=== PATIENT | male | born 1985 | race Caucasian/White ===

== ENCOUNTER → 2022-04-22 07:14 | Outpatient (CLI) | payer OTHER, SELFPAY ==
--- NOTE | 2022-04-22 | DI.MRI.S_ITS ---
PROCEDURE: MR KNEE LT WO CON INDICATIONS: Unspecified superficial injury of left knee, initial encount TECHNIQUE: Noncontrast sagittal PD fast spin echo and T2 fast spin echo with fat saturation, sagittal 3-D FLASH with fat saturation; coronal T1 spin echo and PD fast spin echo with fat saturation, and axial PD fast spin echo with fat saturation through the knee. COMPARISON: None. FINDINGS: Image quality: Excellent. Menisci: There is mild T2 signal elevation at the posterior meniscal capsular junction of the posterior horn medial meniscus. Linear oblique high T2 signal intensity traverses the peripheral 3rd of the posterior horn medial meniscus, demonstrating inferior articular surface extension, indicating oblique tearing. Lateral meniscus is intact. Cruciate ligaments: The anterior and posterior cruciate ligaments appear intact. Medial structures: The medial collateral ligament appears intact. Visualized portions of the pes anserinus tendons appear normal. No abnormal bursal fluid. Lateral structures: The lateral collateral ligament, long and short heads of the biceps femoris tendon appear intact. The popliteus tendon appears normal. Iliotibial band appears normal. Anterior structures: The quadriceps and patellar tendons appear intact. Patellar alignment is normal. No femoral trochlear dysplasia or ventral trochlear prominence. No edema in the infrapatellar fat pad. Bones and cartilage: No bone marrow contusions nor acute fracture. There is chronic appearing contour regularity of the patella. There is mild ill-defined T2 signal elevation within the anterior weight-bearing aspect of the lateral femoral condyle and within the lateral aspect of the lateral femoral trochlea. Mild ill-defined T2 signal elevation within the patellar apex and adjacent portion of the lateral patellar facet. There mild articular cartilage loss diffusely overlying the weight-bearing aspects of the medial femoral condyle and medial tibial plateau. There is a focal full-thickness articular cartilage defect overlying the patellar apex and adjacent portion of the lateral patellar facet spanning roughly 20 mm transverse. Full-thickness articular cartilage loss overlies the mid and anterior weight-bearing aspects of the lateral femoral condyle. Joint space: There is a moderate knee joint effusion. No Snow's cyst. Normal appearing synovial plicae are incidentally noted. IMPRESSION: 1. Meniscal capsular junction injury and oblique tearing involving the medial meniscus. 2. Full-thickness articular cartilage defect overlying the patella, possibly secondary to remote trauma. 3. Moderate knee joint effusion. 4. Contusion versus degenerative marrow edema within the lateral femoral condyle. 5. Lateral compartment articular cartilage loss. Dictated by: Andrey Cooper M.D. on 04/22/2022 at 11:48 Transcribed by: [email or web address] on 04/22/2022 at 11:52 Approved by: Andrey Cooper M.D. on 04/22/2022 at 14:42
== END ==
PROVIDERS: PCP Internal Medicine; Referring Provider Internal Medicine; Visit Provider Internal Medicine
DX: S83.242A Other tear of medial meniscus, current injury, left knee, initial encounter (principal); M25.462 Effusion, left knee
CPT/HCPCS: 73721

== ENCOUNTER 2023-05-30 15:17 | Emergency (ER) | payer OTHER, SELFPAY ==
[2023-05-30 16:00] VITALS: BP 152/91; PULSE 98; RESP 15; TEMP 37.4; O2SAT 98; BMI 31.6
--- NOTE | 2023-05-30 16:03 | DI.RAD.S_ITS ---
PROCEDURE: XR CHEST 2V INDICATIONS: cough x 7 days, fever TECHNIQUE: 2 views of the chest were acquired. COMPARISON: None. FINDINGS: Surgical changes and devices: None. Lungs and pleura: Lungs are clear. No pleural effusions or pneumothorax. Mediastinum: Mediastinal contours are normal. Heart size is normal. Bones and chest wall: No suspicious bony abnormalities. Soft tissues appear unremarkable. IMPRESSION: No acute cardiopulmonary abnormality is seen. Dictated by: Ronit Brewer M.D. on 05/30/2023 at 16:23 Approved by: Ronit Brewer M.D. on 05/30/2023 at 16:23
[2023-05-30 16:35] LABS: COVID19 -Nasal RAPID Negative (Negative)
[2023-05-30 17:55] VITALS: BP 136/81; PULSE 88; RESP 18; O2SAT 97
--- NOTE | 2023-05-31 14:11 | ED_ITS ---
HPI - URI/Sore Throat <Brynn Freedman PA-C - Last Filed: 05/31/23 14:13> General Chief Complaint: Upper Respiratory Symptoms Stated Complaint: cough t-7 worsening Time Seen by Provider: 05/30/23 18:19 Source: patient Mode of arrival: Ambulatory History of Present Illness HPI Narrative: Patient is a 37-year-old male with no significant past medical history who presents with cough. He has been traveling to [place] for work over the past several weeks and developed a cough. He initially attributed this to the dry air or elevation. He never developed a fever or chills, runny nose sore throat or other symptoms. He feels that the cough is improving over the last 2 days. He does endorse that zmew-gnw-[id number] cough medicine helps. The cough is worse at night. He is a nonsmoker. Related Data Allergies Allergy/AdvReac Type Severity Reaction Status Date / Time cefaclor [From Ceclor] Allergy Unknown Verified 05/30/23 16:03 Review of Systems <Brynn Freedman PA-C - Last Filed: 05/31/23 14:13> Review of Systems ROS Unobtainable: All systems reviewed & are unremarkable except as noted in HPI and below Patient History <Brynn Freedman PA-C - Last Filed: 05/31/23 14:13> Social History Smoking Status: Never smoker Smoking Status: Never smoker alcohol intake frequency: 0-2 drinks per day Substance Use Type: does not use Exam <Brynn Freedman PA-C - Last Filed: 05/31/23 14:13> Narrative Exam Narrative: GENERAL: 37 year old patient appears stated age. Well-developed patient, in no distress. NEURO: AOx3. HEAD: Atraumatic. Normocephalic. EYES: Pupils equal round and reactive. Extraocular motions intact. No scleral icterus. No injection or drainage. ENT: Nose without bleeding or purulent drainage. Airway patent. NECK: Trachea midline. Non tender CARDIOVASCULAR: Regular rate and rhythm without murmurs, gallops, or rubs. RESPIRATORY: Clear to auscultation. Breath sounds equal bilaterally. No wheezes, rales, or rhonchi. SKIN: No rash or erythema of visible areas Initial Vital Signs Initial Vital Signs: Vital Signs Temperature 99.3 F 05/30/23 16:00 Pulse Rate 98 H 05/30/23 16:00 Respiratory Rate 15 05/30/23 16:00 Blood Pressure 152/91 H 05/30/23 16:00 Pulse Oximetry 98 05/30/23 16:00 Oxygen Delivery Method Room Air 05/30/23 16:00 <Melinda Arrieta DO - Last Filed: 06/01/23 07:35> Initial Vital Signs Initial Vital Signs: Vital Signs Temperature 99.3 F 05/30/23 16:00 Pulse Rate 98 H 05/30/23 16:00 Respiratory Rate 15 05/30/23 16:00 Blood Pressure 152/91 H 05/30/23 16:00 Pulse Oximetry 98 05/30/23 16:00 Oxygen Delivery Method Room Air 05/30/23 16:00 MDM - URI/Sore Throat <Brynn Freedman PA-C - Last Filed: 05/31/23 14:13> Lab Data Labs: Lab Results 05/30/23 Range/Units 16:34 SARS-CoV-2 (PCR) Negative (Negative) Imaging Data Chest x-ray: Radiologist's Impression: PROCEDURE: XR CHEST 2V INDICATIONS: cough x 7 days, fever TECHNIQUE: 2 views of the chest were acquired. COMPARISON: None. FINDINGS: Surgical changes and devices: None. Lungs and pleura: Lungs are clear. No pleural effusions or pneumothorax. Mediastinum: Mediastinal contours are normal. Heart size is normal. Bones and chest wall: No suspicious bony abnormalities. Soft tissues appear unremarkable. IMPRESSION: No acute cardiopulmonary abnormality is seen. Dictated by: Ronit Brewer M.D. on 05/30/2023 at 16:23 Approved by: Ronit Brewer M.D. on 05/30/2023 at 16:23 [facility] Narrative Medical decision making narrative: Multiple etiologies for patient's symptoms considered including, but not limited to: Viral illness, postviral cough, pneumonia Patient with a very reassuring physical exam without abnormal lung sounds, vital signs within normal limits. Chest x-ray reassuring. COVID test negative. Advised continued supportive care including hydration, rest, gfvp-[id number]-amwksuu cough and cold medicines. Return for reassessment if he develops a fever or chills or difficulty breathing. Patient's symptoms improved over duration of stay with above-stated therapies. Findings and discharge diagnosis discussed with patient/family followed by verbalization of understanding Return precautions discussed with patient/family whom verbalize understanding of diagnosis and plan <Melinda Arrieta DO - Last Filed: 06/01/23 07:35> Lab Data Labs: Lab Results 05/30/23 Range/Units 16:34 SARS-CoV-2 (PCR) Negative (Negative) Discharge Plan Departure Patient Disposition: Home Clinical Impression: Viral respiratory illness Instructions: DI for Viral Upper Respiratory Infection -- Adult Activity Restrictions/Additional Instructions: *You have been diagnosed with a viral respiratory illness. Your chest x-ray does not show any signs of pneumonia. I would advise continued hydration, rest, [id number] cold medicines. *What to do: *Please continue to take your regular medications as directed. [ ] New medication prescriptions sent to your pharmacy: [ ] [ ] New medication written as a paper prescription [x] No new medications given *Please follow up with your primary care provider in 2-3 days, call for an appointment. Let them know you were seen in the Emergency Department and that we ask that you be seen in follow up. We will electronically transmit a record of today's note if your PCP is in our system *If you do not have a primary care provider please contact the [facility] Resource line at [phone]. They will ask some questions about your medical history and help get you set up with a doctor in the community. *Return to Emergency Department if you should have any new, worsening or concerning symptoms, such as [fever greater than 101 F, shaking chills, worsening pain, persistent vomiting or other concerning symptoms]. Referrals: Law Keith MD [Primary Care Provider] - Stand Alone Forms: Patient Portal/API ED Sign-out <Melinda Arrieta DO - Last Filed: 06/01/23 07:35> Cosign ED Attending Yassineature Attestation: I was immediately available in the department for consultation.
== END 2023-05-30 18:32 | disposition home or self-care (01) ==
PROVIDERS: Emergency Medicine; Emergency Provider Physician Assistant; PCP Internal Medicine
DX: J98.8 Other specified respiratory disorders (principal); Z11.52 Encounter for screening for COVID-19
CPT/HCPCS: 71046; 87635; 99283; C9803